=== PATIENT | female | born 1970 | race Caucasian/White ===

== ENCOUNTER 2017-06-20 07:59 | Day surgery (SDC) | payer OTHER ==
[2017-06-14 10:08] VITALS: BMI 24.7
[2017-06-20] MEDS ORDERED: LIDOCAINE HCL/PF 2% SDV 5ML VIAL ONE (08:03)
[2017-06-20] MEDS ORDERED: PROPOFOL 20 ML ONE ×2 (08:03)
[2017-06-20 09:49] VITALS: TEMP 97.7
[2017-06-20 10:22] VITALS: BP 110/60; PULSE 56
--- NOTE | 2017-06-26 15:15 | PATH ---
Surgical Pathology Report Patient Name: ELVIA GELLER [facility]. Rec. #: [id number] /Age/Gender: 1970 (Age: 47) / F Account: [id number] Location: [facility]-ENDOSCOPY Taken: 06/20/2017 Received: 06/20/2017 Reported: 06/26/2017 Physicians: Bc Romero M.D. Specimen(s) Received A: BX DUODENUM B: BX ANTRUM C: BX DISTAL ESOPHAGUS Clinical History Preoperative diagnosis: GERD, family history of colon cancer Postoperative diagnosis: Rule out celiac disease, mild gastritis, esophagitis Final Diagnosis A. DUODENUM, BIOPSY: DUODENAL MUCOSA WITH NO PATHOLOGIC FINDINGS. Note: Features suggestive of celiac disease are not identified in this biopsy. B. ANTRUM, BIOPSY: MILD CHRONIC GASTRITIS. IMMUNOSTAIN IS NEGATIVE FOR H. PYLORI ORGANISMS. C. DISTAL ESOPHAGUS, BIOPSY: MILDLY HYPERPLASTIC ESOPHAGEAL (SQUAMOUS) MUCOSA WITH RARE INTRAEPITHELIAL EOSINOPHILS, CONSISTENT WITH REFLUX ESOPHAGITIS. NO COLUMNAR EPITHELIUM/INTESTINAL METAPLASIA IS IDENTIFIED. Electronically Signed Gretchen Valadez M.D. Gross Description A. Received in formalin, labeled "duodenum" are 2 owens, irregular portions of soft tissue averaging 0.4 cm. in greatest dimension. The specimens are submitted in toto in one cassette. B. Received in formalin, labeled "antrum" are 2 owens, irregular portions of soft tissue measuring 0.3 and 0.4 cm. in greatest dimension. The specimens are submitted in toto in one cassette. C. Received in formalin, labeled "distal esophagus" is a owens, irregular portion of soft tissue measuring 0.4 cm. in greatest dimension. The specimen is submitted in toto in one cassette. 06/21/2017 saudi06/21/2017
== END 2017-06-20 11:15 | disposition home or self-care (01) ==
LOC: FASU-ENDO 07:59
PROVIDERS: ATTEND Internal Medicine Gastroenterology
PROC: 0DB68ZX Excision of Stomach, Via Natural or Artificial Opening Endoscopic, Diagnostic (ICD-10-PCS; 2017-06-20)
PROC: 0DB38ZX Excision of Lower Esophagus, Via Natural or Artificial Opening Endoscopic, Diagnostic (ICD-10-PCS; 2017-06-20)
PROC: 0DB48ZX Excision of Esophagogastric Junction, Via Natural or Artificial Opening Endoscopic, Diagnostic (ICD-10-PCS; 2017-06-20)
PROC: 0DJD8ZZ Inspection of Lower Intestinal Tract, Via Natural or Artificial Opening Endoscopic (ICD-10-PCS; principal; 2017-06-20 09:01)
PROC: 0DB98ZX Excision of Duodenum, Via Natural or Artificial Opening Endoscopic, Diagnostic (ICD-10-PCS; 2017-06-20 09:01)
DX: Z12.11 Encounter for screening for malignant neoplasm of colon (principal); Z80.0 Family history of malignant neoplasm of digestive organs; Z83.71 Family history of colonic polyps; K57.30 Diverticulosis of large intestine without perforation or abscess without bleeding; K20.8 Other esophagitis; K29.50 Unspecified chronic gastritis without bleeding
CPT/HCPCS: 84703; 88305-TC; 88342-TC

== ENCOUNTER 2020-03-29 15:37 | Emergency (ER) | payer OTHER | END 2020-03-29 16:38 | disposition home or self-care (01) | LOC: JVIRT 15:37 | DX: Z11.59 Encounter for screening for other viral diseases (principal) | CPT/HCPCS: C9803; Q3014-GT; U0003 ==

== ENCOUNTER 2020-04-03 12:06 | Emergency (ER) | payer OTHER | END 2020-04-03 13:28 | disposition home or self-care (01) | LOC: JVIRT 12:06 | DX: Z11.59 Encounter for screening for other viral diseases (principal) | CPT/HCPCS: C9803; Q3014-GT; U0003 ==

== ENCOUNTER 2020-04-26 12:18 | Emergency (ER) | payer OTHER | END 2020-04-26 12:52 | disposition home or self-care (01) | LOC: JVIRT 12:18 | DX: Z20.828 Contact with and (suspected) exposure to other viral communicable diseases (principal) | CPT/HCPCS: C9803; G2012-GT; U0003 ==

== ENCOUNTER 2020-12-19 16:58 | Emergency (ER) | payer OTHER ==
[2020-12-20 13:10] LABS: SARS-CoV-2 NAA Not Detected (Not Detected)
== END 2020-12-19 18:43 | disposition home or self-care (01) ==
LOC: JVIRT 16:58
DX: Z20.822 Contact with and (suspected) exposure to COVID-19 (principal)
CPT/HCPCS: C9803; Q3014-GT; U0003; U0005

== ENCOUNTER 2023-09-18 07:34 | Day surgery (SDC) | payer OTHER ==
[2023-09-16 09:15] VITALS: BMI 24.3
[2023-09-18] MEDS ORDERED: LIDOCAINE HCL/PF 2% SDV 5ML VIAL ONE (08:20)
[2023-09-18] MEDS ORDERED: PROPOFOL 160 ML ONE (08:21)
[2023-09-18 09:01] VITALS: TEMP 97.7
[2023-09-18 09:03] VITALS: BP 85/50; PULSE 67; RESP 19
== END 2023-09-18 09:15 | disposition home or self-care (01) ==
LOC: FASU-ENDO 07:34
PROVIDERS: ATTEND Internal Medicine Gastroenterology
PROC: 0DJD8ZZ Inspection of Lower Intestinal Tract, Via Natural or Artificial Opening Endoscopic (ICD-10-PCS; principal; 2023-09-18 08:24)
DX: Z12.11 Encounter for screening for malignant neoplasm of colon (principal); Z80.0 Family history of malignant neoplasm of digestive organs; Z83.719 Family history of colon polyps, unspecified